=== PATIENT | female | born 1970 | race Hispanic/Latino ===

== ENCOUNTER 2020-09-03 07:11 | Emergency (ER) | payer SELFPAY ==
[2020-09-03] MEDS ORDERED: Albuterol 200 PUFF (6.7GM INHALER) ONE (07:41)
[2020-09-03] MEDS ORDERED: predniSONE 20 MG TAB ONE (07:42)
--- NOTE | 2020-09-08 13:25 | EKG ---
Test Reason : Blood Pressure : / mmHG Vent. Rate : 049 BPM Atrial Rate : 049 BPM P-R Int : 182 ms QRS Dur : 080 ms QT Int : 416 ms P-R-T Axes : 064 007 025 degrees QTc Int : 375 ms Sinus bradycardia with sinus arrhythmia Low voltage QRS Borderline ECG Confirmed by BEBETO NIEVES DO ([id number]), non linear editor ABDULLAHI VASQUEZ ([id number] on 09/08/2020 1:25:08 PM Referred By: Confirmed By:BEBETO NIEVES DO
== END 2020-09-03 09:21 | disposition home or self-care (01) ==
LOC: ERS 07:11
DX: J45.901 Unspecified asthma with (acute) exacerbation (principal); F41.9 Anxiety disorder, unspecified; F32.9 Major depressive disorder, single episode, unspecified; Z87.891 Personal history of nicotine dependence
CPT/HCPCS: 93005; J7512

== ENCOUNTER 2020-10-10 13:23 | Emergency (ER) | payer SELFPAY ==
--- NOTE | 2020-10-10 14:16 | RAD ---
Chest AP view INDICATION: Pain with breathing COMPARISON: None FINDINGS: Lungs: The lungs are clear Cardiac silhouette: The cardiomediastinal silhouette appears within normal limits. Pulmonary vasculature: Normal Pleural spaces: No pleural effusion or pneumothorax is demonstrated. Upper abdomen: No abnormality seen. Osseous structures: No acute osseous abnormality. Additional findings: None. IMPRESSION: No acute cardiopulmonary abnormality.
== END 2020-10-10 16:24 | disposition home or self-care (01) ==
LOC: ERS 13:23
DX: R07.81 Pleurodynia (principal); J44.9 Chronic obstructive pulmonary disease, unspecified; F41.9 Anxiety disorder, unspecified; F32.9 Major depressive disorder, single episode, unspecified; Z87.891 Personal history of nicotine dependence
CPT/HCPCS: 71045; 93005